=== PATIENT | female | born 1945 | race Caucasian/White ===

== ENCOUNTER 2020-11-16 14:12 | Observation (INO) | payer MEDICARE ==
[2020-11-16 15:21] LABS: #Lymphocytes 0.9 thou/uL (1.20-3.40); #Monocytes 0.8 thou/uL (0.11-0.59); #Neutrophils 8.5 thou/uL (1.40-6.50); %Basophils 0.5 % (0.0-1.0); %Eosinophils 0.2 % (0.0-10.0); %Monocytes 7.3 % (0.0-10.0); Hemoglobin 12.8 g/dL (12.0-16.0); Mean Corpuscular Hemoglobin 33.3 pg (27.0-31.0); Mean Corpuscular Volume 97.9 fL (78.0-98.0); Mean Platelet Volume 8.8 fL (7.4-10.4); Platelet Count 244 thou/uL (130-400); RBC Distribution Width 11.4 % (11.5-14.5); Red Blood Cell (RBC) Count 3.86 mill/uL (4.20-5.40); White Blood Cell (WBC) Count 10.2 thou/uL (4.8-10.8)
[2020-11-16 15:41] LABS: ALT (SGPT) 21 U/L (8-55); AST (SGOT) 22 U/L (5-34); Alkaline Phosphatase 80 U/L (40-110); Anion Gap 15 mmol/L (10-20); BUN (Urea Nitrogen) 15 mg/dL (9.8-20.1); Bilirubin, Total 0.5 mg/dL (0.2-1.2); Calc. Creatinine Clearance 0 mL/min (70-130); Calcium 9.2 mg/dL (7.8-10.44); Carbon Dioxide 27 mmol/L (23-31); Chloride 96 mmol/L (98-107); Globulin 2.9 g/dL (2.4-3.5); Glucose 114 mg/dL (83-110); Potassium 4.3 mmol/L (3.5-5.1); Protein, Total 6.9 g/dL (6.0-8.3); Sodium 134 mmol/L (136-145)
--- NOTE | 2020-11-16 15:48 | RAD ---
PELVIC RADIOGRAPH: 11/16/20 PROVIDED CLINICAL HISTORY: Fall. FINDINGS: There is no definite evidence for fracture or other acute osseous abnormality. If there is persistent clinical concern, conservative management and follow-up imaging are advised. IMPRESSION: As above. POS: HIRA
--- NOTE | 2020-11-16 15:52 | CT ---
CT OF THE BRAIN 11/16/20 PROVIDED CLINICAL HISTORY: Fall with memory loss. FINDINGS: No comparisons. The ventricular system appears normal in size and morphology. There is no evidence for intracranial h emorrhage or mass effect. Chronic microvascular ischemic changes are seen. 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 The extracranial soft tissues and osseous structur es demonstrate an unremarkable CT appearance. IMPRESSION: No evidence for intracranial hemorrhage or mass effect. POS: HIRA
--- NOTE | 2020-11-16 16:05 | CT ---
CT CERVICAL SPINE 11/16/20 PROVIDED CLINICAL HISTORY: Fall with memory loss. FINDINGS: There is no evidence for fracture or traumatic subluxation. No prevertebral soft tissue swelling appa rent. The visualized lung apices appear clear. Bone island is demonstrated involving the C2 vertebral body. IMPRESSION: No evidence for fracture or traumatic subluxation. POS: HIRA
[2020-11-16] MEDS ORDERED: Acetaminophen 325 MG TAB PO PRN (16:20)
[2020-11-16] MEDS ORDERED: Senokot S 8.6-50 MG TAB PO PRN (16:20)
[2020-11-16] MEDS ORDERED: Aspirin 325 MG TAB ONE (16:48)
[2020-11-16 18:09] VITALS: BMI 24.7
--- NOTE | 2020-11-16 19:17 | HP ---
CHIEF COMPLAINT: Presyncope. HISTORY OF PRESENT ILLNESS: The patient is a 75-year-old female with a past medical history of mitral regurgitation and breast cancer, who presents to the hospital with a fall. The patient states that she was standing at her son's mobile home, holding onto the door where the wind was very strong and the patient stated that she lost her balance and fell down the stairs backwards hitting her head. She denies losing consciousness. When her son came to her side after the fall, the patient was awake and coherent. However, she did have a little bit of confusion, which resolved after a while. She denies any recent fevers or chills. She denies any diaphoresis, any palpitations, any events before this occurred. She clearly stated that she was holding on to the door and she felt that the wind was too strong that is when she lost her balance and fell. PAST MEDICAL HISTORY: She has a history of mitral regurgitation, which she follows up with a cognos consultant in her hometown. She has a history of breast cancer. She underwent 16 rounds of radiation and she also has white coat syndrome. PAST SURGICAL HISTORY: She has had a right lumpectomy and right wrist surgery. FAMILY HISTORY: Father has history of heart disease. Mother has history of heart disease. ALLERGIES: SHE IS ALLERGIC TO SULFA AND EPINEPHRINE. MEDICATIONS: She is on aspirin and some vitamins. REVIEW OF SYSTEMS: All negative except for the ones mentioned above in the HPI. PHYSICAL EXAMINATION: VITAL SIGNS: Temperature of 97.2, pulse 87, respiratory rate 17, oxygen saturation 99% on room air, and her blood pressure is 192/80. GENERAL: She is awake, alert, and oriented x3. Does not appear in any distress. CV: S1 and S2 present. No murmurs, rubs, or gallops. LUNGS: Clear to auscultation. No rhonchi or wheezes noted. ABDOMEN: Soft and nontender. Bowel sounds present x2. EXTREMITIES: No edema. Pedal pulses present x2. NEUROVASCULAR: No focal deficits noted. SKIN: No cuts, lesions, or bruises noted. LABORATORY DATA: WBCs 10.2, hemoglobin of 12.8, hematocrit of 37.8, and platelets of 244. Chemistry; sodium of 134, potassium of 4.4, BUN of 15, and creatinine of 0.88. Troponin x1 is negative. She did have a CT cervical spine and CT head, CT cervical spine indicated no acute abnormalities or fractures. CT brain did not show any acute abnormalities either. She had a pelvic x-ray, which again was stable. ASSESSMENT AND PLAN: The patient is a very pleasant 75-year-old female, who presents to the hospital with complaints of fall. 1. Fall. This is most likely a mechanical fall. We will monitor the patient overnight. However, there was some component of confusion. We will get a carotid Doppler and also an echocardiogram given her history of mitral regurgitation. If those are negative, we will probably discharge her in the morning. She did have some T-wave inversions in her lateral leads. There is no previous EKG for comparison and her troponin x1 is negative. We will trend her troponins x2 and we will see what happens. 2. History of breast cancer. We will continue her home medication. 3. Deep venous thrombosis prophylaxis. We will put the patient on subcu heparin. Job ID: [id number] MTDD
[2020-11-16 19:23] LABS: Troponin I 0.043 ng/mL (< 0.028)
[2020-11-16 21:19] LABS: Troponin I 0.033 ng/mL (< 0.028)
--- NOTE | 2020-11-16 22:13 | ULT ---
EXAM: Carotid ultrasound HISTORY: Syncope and confusion COMPARISON: None TECHNIQUE: Multiplanar grayscale and color Doppler images were obtained in a carotid ultrasound. Spec tral analysis of the Doppler waveforms were performed. FINDINGS: No significant plaque is visualized in either internal carotid artery. No significant plaque is seen in either common carotid artery. The Doppler waveforms are normal in the visualized vessels. Peak systolic velocity in the right internal carotid artery 86 cm/s. Peak systolic velocity in the right common carotid artery 116 cm/s. The right ICA/CCA ratio is 0.7. Peak systolic velocity in the left internal carotid artery 75 cm/s. Peak systolic velocity in the left common carotid artery 123 cm/s. The left ICA/CCA ratio is 0.6. Both vertebral arteries demonstrate antegrade flow without focal stenosis IMPRESSION: No evidence of hemodynamically significant stenosis.
[2020-11-17 05:10] LABS: #Basophils 0.1 thou/uL (0.0-0.2); #Eosinphils 0.1 thou/uL (0.0-0.7); #Lymphocytes 1.7 thou/uL (1.20-3.40); #Monocytes 0.7 thou/uL (0.11-0.59); #Neutrophils 3.5 thou/uL (1.40-6.50); %Basophils 1.2 % (0.0-1.0); %Eosinophils 1.6 % (0.0-10.0); %Lymphocytes 28.2 % (21.0-51.0); %Monocytes 10.8 % (0.0-10.0); %Neutrophils 58.1 % (42.0-75.0); Mean Corpuscular HGB CONC 33.2 g/dL (32.0-36.0); Mean Corpuscular Hemoglobin 32.6 pg (27.0-31.0); Mean Corpuscular Volume 98.3 fL (78.0-98.0); Mean Platelet Volume 9.3 fL (7.4-10.4); Platelet Count 216 thou/uL (130-400); RBC Distribution Width 11.3 % (11.5-14.5); Red Blood Cell (RBC) Count 3.38 mill/uL (4.20-5.40)
[2020-11-17 05:32] LABS: Anion Gap 10 mmol/L (10-20); BUN (Urea Nitrogen) 13 mg/dL (9.8-20.1); Calc. Creatinine Clearance 60 mL/min (70-130); Calcium 8.7 mg/dL (7.8-10.44); Carbon Dioxide 29 mmol/L (23-31); Chloride 100 mmol/L (98-107); Glucose 77 mg/dL (83-110); Potassium 4.3 mmol/L (3.5-5.1); Sodium 135 mmol/L (136-145)
[2020-11-17 06:04] LABS: SARS-CoV-2 MS2 Positive; SARS-CoV-2 N Gene Negative; SARS-CoV-2 S Gene Negative; SARS-CoV-2 by NAA Not Detected (NotDetected); SARS-CoV-2 orf1ab Negative
[2020-11-17 07:23] VITALS: TEMP 98.1
[2020-11-17] MEDS ORDERED: Enoxaparin Sodium 40 MG/0.4 ML SYRINGE SC SCH (09:00)
[2020-11-17 10:56] LABS: Troponin I 0.015 ng/mL (< 0.028)
[2020-11-17 11:18] VITALS: BP 141/67
--- NOTE | 2020-11-17 19:48 | PDOC.DS.DS ---
Provider - Provider Date of Admission: 11/16/20 16:28 Date of Discharge: 11/17/20 Admitting Provider: Dhara Leyva MD Primary Care Physician: Unknown Course - Hospital Course Hospital Course: Patient is a very pleasant 75-year-old female who initially presented to the hospital after having a mechanical fall. She had an echocardiogram which indicated an EF of 55 to 60%. Patient had mildly elevated troponins and had some T wave inversions on her EKG. However patient had no chest pain. Patient's carotid Dopplers were negative. Patient will be discharged home to follow-up with her note taker and her hometown Resuscitation Status: 11/16/20 16:20 Resuscitation Status Routine Resuscitation Status: FULL: Full Resuscitation - Labs Lab Results: 11/17/20 04:16 11/17/20 04:16 Abnormal Lab Results - Last 48 hrs 11/16/20 15:05: Sodium 134 L, Chloride 96 L 11/16/20 15:05: RBC 3.86 L, MCH 33.3 H, RDW 11.4 L, Neutrophils % 83.0 H, Lymphocytes % 9.0 L, Neutrophils # 8.5 H, Lymphocytes # 0.9 L, Monocytes # 0.8 H 11/16/20 18:50: Troponin I 0.043 H 11/16/20 20:41: Troponin I 0.033 H 11/17/20 04:16: Sodium 135 L 11/17/20 04:16: RBC 3.38 L, Hgb 11.0 L, Hct 33.2 L, MCV 98.3 H, MCH 32.6 H, RDW 11.3 L, Monocytes % 10.8 H, Basophils % 1.2 H, Monocytes # 0.7 H - Physical Exam Vitals: Vital Signs (12 hours) Temp Pulse Resp BP Pulse Ox 11/17/20 11:16 98.1 F 72 18 141/67 H 97 Weight Weight 135 lb 2 oz Physical Exam: The patient was seen and examined on the day of discharge. Problem - Discharge Plan Assessment: 1. Presyncope #2 mechanical fall #3 mildly elevated troponins most likely demand related Plan - Discharge Medications Home Medications: Medication Instructions Recorded Confirmed Type Anastrozole [Arimidex] 1 mg PO DAILY 11/16/20 History Aspirin [Ecotrin Low Strength] 1 tab PO ASDIR 11/16/20 History Cholecalciferol (Vitamin D3) 1 capsule PO DAILY 11/16/20 History [Vitamin D3] Denosumab [Prolia] 60 mg SQ ASDIR 11/16/20 History Multivit With Calcium,Iron,Min 1 tab PO DAILY 11/16/20 History [One Daily Women's] Allergies: epinephrine Allergy (Verified 11/16/20 22:50) Sulfa (Sulfonamide Antibiotics) Allergy (Verified 11/16/20 22:50) - Discharge Instructions Activity:: Activity as Tolerated Nourishment:: Heart Healthy Diet - Follow up Plan Referrals: Unknown,Unknown [Primary Care Provider] - 7 Days (Please call to make an appointment with your Primary care provider and your note taker and bring this packet to your appointments. ) Disposition: HOME Quality - Care Measures CORE MEASURES:: N/A
== END 2020-11-17 14:12 | disposition home or self-care (01) ==
LOC: ERS 14:12 → 2NO 16:28
PROVIDERS: ADMIT Internal Medicine; ATTEND Internal Medicine
DX: R55 Syncope and collapse (principal); Z79.82 Long term (current) use of aspirin; Z79.899 Other long term (current) drug therapy; Z88.2 Allergy status to sulfonamides; Z88.8 Allergy status to other drugs, medicaments and biological substances; W19.XXXA Unspecified fall, initial encounter; Z20.828 Contact with and (suspected) exposure to other viral communicable diseases
CPT/HCPCS: 70450; 72125; 72170; 80048; 80053; 84484 ×3; 85025 ×2; 93005; 93306; 93880; 94760; 97139; 99285; U0003; 36415; 87635; 96372; G0378; J1650

== ENCOUNTER 2021-10-19 04:51 | Observation (INO) | payer MEDICARE, OTHER ==
[2021-10-19] MEDS ORDERED: Labetalol HCl 100 MG/20 ML VIAL ONE (05:30)
[2021-10-19 05:53] LABS: #Eosinphils 0.1 thou/uL (0.0-0.7); #Lymphocytes 0.9 thou/uL (1.20-3.40); #Monocytes 0.6 thou/uL (0.11-0.59); #Neutrophils 7.8 thou/uL (1.40-6.50); %Basophils 0.5 % (0.0-1.0); %Eosinophils 0.9 % (0.0-10.0); %Lymphocytes 9.4 % (21.0-51.0); %Neutrophils 83.3 % (42.0-75.0); Hemoglobin 12.9 g/dL (12.0-16.0); Mean Corpuscular HGB CONC 33.9 g/dL (32.0-36.0); Mean Corpuscular Hemoglobin 33.7 pg (27.0-31.0); Mean Corpuscular Volume 99.2 fL (78.0-98.0); Mean Platelet Volume 8.6 fL (7.4-10.4); Platelet Count 215 thou/uL (130-400); RBC Distribution Width 11.6 % (11.5-14.5); Red Blood Cell (RBC) Count 3.83 mill/uL (4.20-5.40); White Blood Cell (WBC) Count 9.4 thou/uL (4.8-10.8)
[2021-10-19 06:12] LABS: ALT (SGPT) 99 U/L (8-55); AST (SGOT) 66 U/L (5-34); Alkaline Phosphatase 136 U/L (40-110); Anion Gap 12 mmol/L (10-20); BUN (Urea Nitrogen) 10 mg/dL (9.8-20.1); Bilirubin, Total 0.7 mg/dL (0.2-1.2); Calc. Creatinine Clearance 0 mL/min (70-130); Calcium 9.7 mg/dL (7.8-10.44); Carbon Dioxide 26 mmol/L (23-31); Chloride 100 mmol/L (98-107); Globulin 2.9 g/dL (2.4-3.5); Glucose 114 mg/dL (83-110); Lipase 30 U/L (8-78); Potassium 4.3 mmol/L (3.5-5.1); Protein, Total 6.9 g/dL (5.8-8.1); Sodium 134 mmol/L (136-145)
[2021-10-19] MEDS ORDERED: metroNIDAZOLE 500 MG TAB PO SCH (08:15)
[2021-10-19] MEDS ORDERED: metroNIDAZOLE 250 MG TAB ONE (08:16)
[2021-10-19 08:58] LABS: Troponin I 0.013 ng/mL (< 0.028)
[2021-10-19] MEDS ORDERED: Acetaminophen 500 MG TAB PO PRN (09:05)
[2021-10-19] MEDS ORDERED: Ondansetron ODT 4 MG TAB PO PRN (09:10)
[2021-10-19] MEDS ORDERED: Senokot S 8.6-50 MG TAB PO PRN (09:10)
[2021-10-19] MEDS ORDERED: Iopamidol-370 76% 500 ML 1 ML ONE (09:34)
[2021-10-19 09:46] LABS: Magnesium 1.7 mg/dL (1.6-2.6)
[2021-10-19 11:26] VITALS: BMI 23.8
[2021-10-19] MEDS: cefTRIAXone\\ROCEPHIN 1 GM in Sodium Chloride 0.9% 100 ML IVPB SCH (11:55)
[2021-10-19] MEDS ORDERED: metroNIDAZOLE 500 MG in Premix Bag 1 BAG IVPB SCH (14:00)
[2021-10-19] MEDS: metroNIDAZOLE 500 MG TAB PO SCH ×2 (16:10→19:50)
[2021-10-19] MEDS: Famotidine 20 MG TAB PO SCH (19:50)
[2021-10-20 00:25] LABS: SARS-CoV-2 PCR by NAA Not Detected (NotDetected)
[2021-10-20 03:39] LABS: Bacteria/HPF None Seen HPF (None Seen); Bilirubin Negative (Negative); Blood, Urine Negative (Negative); Clarity Clear (Clear); Glucose, Urine (Dipstick) Normal (Negative); Ketone, Urine Negative (Negative); Leukocyte 25 Leu/uL (Negative); Nitrite Negative (Negative); Protein, Urine (Dipstick) Negative (Neg-Trace); RBC/HPF 0-3 HPF (0-3); Specific Gravity, Urine 1.015 (1.002-1.036); Squamous Epithelial None Seen HPF (0-3); Urobilinogen Normal mg/dL (Less than 2); WBC/HPF 0-3 HPF (0-3)
[2021-10-20 05:31] LABS: #Basophils 0.1 thou/uL (0.0-0.2); #Eosinphils 0.1 thou/uL (0.0-0.7); #Lymphocytes 1.8 thou/uL (1.20-3.40); #Monocytes 0.7 thou/uL (0.11-0.59); #Neutrophils 4.1 thou/uL (1.40-6.50); %Basophils 0.8 % (0.0-1.0); %Eosinophils 0.9 % (0.0-10.0); %Lymphocytes 26.8 % (21.0-51.0); %Monocytes 10.8 % (0.0-10.0); %Neutrophils 60.8 % (42.0-75.0); Hemoglobin 10.5 g/dL (12.0-16.0); Mean Corpuscular HGB CONC 34.2 g/dL (32.0-36.0); Mean Corpuscular Volume 99.4 fL (78.0-98.0); Mean Platelet Volume 8.9 fL (7.4-10.4); Platelet Count 168 thou/uL (130-400); RBC Distribution Width 11.6 % (11.5-14.5); Red Blood Cell (RBC) Count 3.09 mill/uL (4.20-5.40); White Blood Cell (WBC) Count 6.7 thou/uL (4.8-10.8)
[2021-10-20 05:56] LABS: Anion Gap 8 mmol/L (10-20); BUN (Urea Nitrogen) 11 mg/dL (9.8-20.1); Calc. Creatinine Clearance 52 mL/min (70-130); Calcium 8.9 mg/dL (7.8-10.44); Carbon Dioxide 26 mmol/L (23-31); Chloride 102 mmol/L (98-107); Glucose 89 mg/dL (83-110); Potassium 4.1 mmol/L (3.5-5.1); Sodium 132 mmol/L (136-145)
[2021-10-20] MEDS: metroNIDAZOLE 500 MG TAB PO SCH ×2 (08:04→14:08)
[2021-10-20] MEDS: Famotidine 20 MG TAB PO SCH (08:05)
[2021-10-20] MEDS: cefTRIAXone\\ROCEPHIN 1 GM in Sodium Chloride 0.9% 100 ML IVPB SCH (10:21)
[2021-10-20 16:07] VITALS: BP 152/67; TEMP 98.3
[2021-10-20] MEDS ORDERED: Multivitamin W/ Minerals 1 TAB PO SCH (21:00)
[2021-10-20] MEDS ORDERED: Atorvastatin Calcium 20 MG TAB PO SCH (21:00)
[2021-10-20] MEDS ORDERED: Anastrozole 1 MG TAB PO SCH (21:00)
[2021-10-21] MEDS ORDERED: Aspirin 81 mg Enteric Coated Tablet PO SCH (09:00)
== END 2021-10-20 16:22 | disposition home or self-care (01) ==
LOC: ERS 04:51 → 2SW 07:56
PROVIDERS: ADMIT Internal Medicine; ATTEND Internal Medicine
DX: R55 Syncope and collapse (principal); E87.1 Hypo-osmolality and hyponatremia; K57.32 Diverticulitis of large intestine without perforation or abscess without bleeding; I16.0 Hypertensive urgency; E78.5 Hyperlipidemia, unspecified; I08.3 Combined rheumatic disorders of mitral, aortic and tricuspid valves; I31.3 Pericardial effusion (noninflammatory); F41.9 Anxiety disorder, unspecified; Z20.822 Contact with and (suspected) exposure to COVID-19; Z88.1 Allergy status to other antibiotic agents; Z88.2 Allergy status to sulfonamides; Z88.5 Allergy status to narcotic agent; Z88.8 Allergy status to other drugs, medicaments and biological substances; Z79.82 Long term (current) use of aspirin; Z79.899 Other long term (current) drug therapy; Z90.710 Acquired absence of both cervix and uterus; Z90.722 Acquired absence of ovaries, bilateral; Z98.890 Other specified postprocedural states; Z85.3 Personal history of malignant neoplasm of breast; Z92.3 Personal history of irradiation
CPT/HCPCS: 70450; 71045; 74177; 80048; 81001; 83690; 83735; 84484 ×2; 85025; 93005; 93306; 96365; 96375; 97116; 97139; 99285; U0003; U0005; 36415; 80053; 84443; 96376; G0378; J0696; J0744; J3490; Q9967